=== PATIENT | male | born 1985 | race Caucasian/White ===

== ENCOUNTER 2016-11-28 15:32 | Inpatient (IN) | payer BC, OTHER ==
[~2016-11-28] VITALS: Ht 188 cm; Wt 67.4 kg
[~2016-11-28 15:32] MED LIST: HYDR25CA PO; LORA-741 PO; MULT-506 PO
[2016-11-28 16:35] LABS: BASO % 0.3 %; BASO ABS # 0.02 K/uL (0-0.2); COMPLETE YES; MEAN CELL VOLUME 90.5 fL (80-100); MEAN CORPUSCULAR HEMOGLOBIN 32.6 pg (25-34); MEAN PLATELET VOLUME 10.7 fL (7.4-10.4); MONO % 7.5 %; NEUT % 42.2 %; PLATELET COUNT 223 K/uL (130-400); RED BLOOD COUNT 4.75 M/uL (4.7-6.1); WHITE BLOOD COUNT 6.94 K/uL (4.8-10.8)
[2016-11-28 16:44] LABS: URINE APPEARANCE CLEAR (CLEAR); URINE COLOR DK YELLOW; URINE NITRITE NEG (NEG); URINE PH 5.5 (4.5-7.5); URINE SPECIFIC GRAVITY 1.037 (1.000-1.030); UROBILINOGEN NEG (NEG)
[2016-11-28 16:53] LABS: BUN/CREATININE RATIO 21.8 (10-20); CALCIUM 9.4 mg/dl (8.5-10.1); CREATININE 0.85 mg/dl (0.60-1.40); POTASSIUM 3.7 mmol/L (3.5-5.1)
[2016-11-28 17:02] LABS: MANUAL MICROSCOPIC REQUIRED? NO; REVIEW REQ? NO
[2016-11-28 17:03] LABS: URINE BILIRUBIN NEG (NEG)
[2016-11-28 17:04] LABS: BENZODIAZEPINE, URINE NEG (NEG); COCAINE,URINE NEG (NEG); PHENCYCLIDINE, URINE NEG (NEG)
[2016-11-28 17:04] LABS: ALB/GLOB RATIO 1.7 (0.9-2); THYROID STIMULATING HORMONE 2.01 uIu/ml (0.300-4.500)
--- NOTE | 2016-11-28 19:12 | EMERGENCY ROOM VISIT NOTE ---
History Report prepared by [place]: Merle Marie Under the Supervision of: Dr. Jian Duque D.O. First contact with patient: 15:54 Chief Complaint: MENTAL HEALTH EVALUATION Stated Complaint: DEPRESSION AND ANXIETY, PANIC History of Present Illness The patient is a 31 year old male who presents to the Emergency Room with complaints of persistent depression starting a few days ago. The patient complains of suicidal thoughts with plans to shoot himself. He also has intermittent homicidal ideation about hurting his girlfriend and his kids. He feels confused about his thoughts. He reports a loss of appetite. The patient has a history of similar symptoms occurring in May 2016. He has a history of ADHD and anxiety. He currently denies any pain. Pt denies headache, change in vision, fevers, chest pain, shortness of breath, nausea, vomiting, diarrhea, pain with urination, and melena. Source of History: patient Onset: a few days ago Position: other (global) Symptom Intensity: No pain Quality: other (depression) Timing: other (persistent) Associated Symptoms: No SOB, No abdominal pain, No chest pain, No diarrhea, No fevers, No headache, No nausea, No vomiting Review of Systems See HPI for pertinent positives & negatives. A total of 10 systems reviewed and were otherwise negative. Past Medical & Surgical Medical Problems: (1) Anxiety (2) Depression (3) Panic attack Family History Patient reports no known family medical history. Social History Smoking Status: Never Smoker Marital Status: single Occupation Status: employed Current/Historical Medications No Active Prescriptions or Reported Meds Allergies Coded Allergies: NSAIDs (Verified Adverse Reaction, Intermediate, GI BLEED, 11/28/16) Physical Exam Vital Signs Date Time Temp Pulse Resp B/P Pulse Ox O2 Delivery O2 Flow Rate FiO2 11/28/16 21:26 70 16 116/64 100 11/28/16 20:00 74 12 109/54 11/28/16 17:45 79 17 111/63 97 Room Air 11/28/16 15:49 37.0 90 21 126/76 98 Room Air Physical Exam GENERAL: Sitting up in bed, alert, well appearing, well nourished, no distress, non-toxic. EYE EXAM: normal conjunctiva OROPHARYNX: no exudate, no erythema, lips, buccal mucosa, and tongue normal and mucous membranes are moist NECK: supple, no nuchal rigidity, no adenopathy, non-tender LUNGS: Clear to auscultation. Normal chest wall mechanics HEART: no murmurs, S1 normal and S2 normal ABDOMEN: abdomen soft, non-tender, normo-active bowel sounds, no masses, no rebound or guarding. BACK: Back is symmetrical on inspection and there is no deformity, no midline tenderness, no CVA tenderness. SKIN: no rashes and no bruising UPPER EXTREMITIES: upper extremities are grossly normal. LOWER EXTREMITIES: No pitting edema. NEURO EXAM: Normal sensorium, cranial nerves II-XII grossly intact, normal speech, no gross weakness of arms, no gross weakness of legs. PSYCHIATRIC: Admits to suicidal ideation with a plan to shoot himself and intermittent homicidal ideation. Medical Decision & Procedures Laboratory Results 11/28/16 16:17 Red Blood Count 4.75, Mean Corpuscular Volume 90.5, Mean Corpuscular Hemoglobin 32.6, Mean Corpuscular Hemoglobin Concent 36.0, Mean Platelet Volume 10.7, Neutrophils (%) (Auto) 42.2, Lymphocytes (%) (Auto) 49.0, Monocytes (%) (Auto) 7.5, Eosinophils (%) (Auto) 1.0, Basophils (%) (Auto) 0.3, Neutrophils # (Auto) 2.93, Lymphocytes # (Auto) 3.40, Monocytes # (Auto) 0.52, Eosinophils # (Auto) 0.07, Basophils # (Auto) 0.02 11/28/16 16:17 Test 11/28/16 16:14 11/28/16 16:17 Urine Color DK YELLOW Urine Appearance CLEAR (CLEAR) Urine pH 5.5 (4.5-7.5) Urine Specific [place] 1.037 (1.000-1.030) Urine Protein 1+ (NEG) Urine Glucose (UA) NEG (NEG) Urine Ketones 3+ (NEG) Urine Occult Blood NEG (NEG) Urine Nitrite NEG (NEG) Urine Bilirubin NEG (NEG) Urine Urobilinogen NEG (NEG) Urine Leukocyte Esterase NEG (NEG) Urine WBC (Auto) 1-5 /hpf (0-5) Urine RBC (Auto) 0-4 /hpf (0-4) Urine Hyaline Casts (Auto) 5-10 /lpf (0-5) Urine Epithelial Cells (Auto) 10-20 /lpf (0-5) Urine Bacteria (Auto) NEG (NEG) Urine Opiates Screen NEG (NEG) Urine Methadone, Qualitative NEG (NEG) Urine Barbiturates NEG (NEG) Urine Phencyclidine (PCP) Level NEG (NEG) Ur Amphetamine/Methamphetamine NEG (NEG) MDMA (Ecstasy) Screen NEG (NEG) Urine Benzodiazepines Screen NEG (NEG) Urine Cocaine Metabolite NEG (NEG) Urine Marijuana (THC) NEG (NEG) White Blood Count 6.94 K/uL (4.8-10.8) Red Blood Count 4.75 M/uL (4.7-6.1) Hemoglobin 15.5 g/dL (14.0-18.0) Hematocrit 43.0 % (42-52) Mean Corpuscular Volume 90.5 fL (80-100) Mean Corpuscular Hemoglobin 32.6 pg (25-34) Mean Corpuscular Hemoglobin Concent 36.0 g/dl (32-36) Platelet Count 223 K/uL (130-400) Mean Platelet Volume 10.7 fL (7.4-10.4) Neutrophils (%) (Auto) 42.2 % Lymphocytes (%) (Auto) 49.0 % Monocytes (%) (Auto) 7.5 % Eosinophils (%) (Auto) 1.0 % Basophils (%) (Auto) 0.3 % Neutrophils # (Auto) 2.93 K/uL (1.4-6.5) Lymphocytes # (Auto) 3.40 K/uL (1.2-3.4) Monocytes # (Auto) 0.52 K/uL (0.11-0.59) Eosinophils # (Auto) 0.07 K/uL (0-0.5) Basophils # (Auto) 0.02 K/uL (0-0.2) RDW Standard Deviation 40.1 fL (36.4-46.3) RDW Coefficient of Variation 12.1 % (11.5-14.5) Immature Granulocyte % (Auto) 0.0 % Immature Granulocyte # (Auto) 0.00 K/uL (0.00-0.02) Anion Gap 9.0 mmol/L (3-11) Est Creatinine Clear Calc Drug Dose 125.0 ml/min Estimated GFR () 136.5 Estimated GFR (Non- 117.7 BUN/Creatinine Ratio 21.8 (10-20) Calcium Level 9.4 mg/dl (8.5-10.1) Total Bilirubin 1.0 mg/dl (0.2-1) Direct Bilirubin 0.2 mg/dl (0-0.2) Aspartate Amino Transf (AST/SGOT) 10 U/L (15-37) Alanine Aminotransferase (ALT/SGPT) 19 U/L (12-78) Alkaline Phosphatase 60 U/L (45-117) Total Protein 8.5 gm/dl (6.4-8.2) Albumin 5.3 gm/dl (3.4-5.0) Globulin 3.2 gm/dl (2.5-4.0) Albumin/Globulin Ratio 1.7 (0.9-2) Thyroid Stimulating Hormone (TSH) 2.010 uIu/ml (0.300-4.500) Ethyl Alcohol mg/dL < 3.0 mg/dl (0-3) Laboratory results per my review. ED Course ED COURSE: Vital signs were reviewed and showed normal. The patients medical record was reviewed The above diagnostic studies were performed and reviewed. ED treatments and interventions as stated above. 1554: The patient was evaluated in room A07. A complete history and physical examination was performed. 1908: Upon reevaluation, the patient is resting comfortably. I discussed my findings with the patient and he understands and agrees with the treatment plan. Based on the patients age, coexisting illnesses, exam and lab findings the decision to treat as an inpatient was made. The patient remained stable while under my care. The patient will be evaluated for further management at [address] [place] [address]. Medical Decision Differential diagnosis: Etiologies such as mood disorder, infection, hypoglycemia, electrolyte abnormalities, cardiac sources, intracerebral event, toxicologic, neurologic, as well as others were entertained. Patient is a 31-year-old male who presents the ER with suicidal and homicidal ideations. He has a history of ADHD and anxiety. CBC along with BMP, LFTs, bilirubin and TSH are unremarkable. UA is unremarkable. Urine tox was negative. Alcohol was negative. Patient was evaluated and admitted to [facility] with suicidal and homicidal ideations. CBC along with BMP, bilirubin, LFTs and TSH are unremarkable. Urine tox is unremarkable. Patient was admitted to [facility]. Impression Primary Impression: Mood disorder Additional Impressions: Suicidal ideation Homicidal ideation Scribe Attestation The scribe's documentation has been prepared under my direction and personally reviewed by me in its entirety. I confirm that the note above accurately reflects all work, treatment, procedures, and medical decision making performed by me. Departure Information Dispostion Mental Health Acute Care Prescriptions No Active Prescriptions or Reported Meds Referrals Octaviano Farfan M.D. (PCP) Forms HOME CARE DOCUMENTATION FORM, IMPORTANT VISIT INFORMATION Patient Instructions [facility] Problem Qualifiers
[2016-11-28] MEDS ORDERED: NURSING VERBAL MED ORDER ONE (21:15)
[2016-11-28 21:26] VITALS: O2SAT 100
[2016-11-28] MEDS ORDERED: hydrOXYzine HCL 25 MG TAB PO PRN (21:45)
[2016-11-28] MEDS ORDERED: CLONAZEPAM 0.5 MG TAB PO ONE (21:45)
[2016-11-28] MEDS ORDERED: MAGNESIUM HYDROXIDE SUSP 30 ML UDC PO PRN (21:45)
[2016-11-28] MEDS ORDERED: ALUMINUM/MAGNESIUM SUSP 30 ML UDC PO PRN (21:45)
[2016-11-28] MEDS ORDERED: SODIUM CHLORIDE 0.65% NA SOLN 45 ML (OCEAN) PRN (21:45)
[2016-11-28] MEDS ORDERED: ACETAMINOPHEN 325 MG TAB PO PRN (21:45)
[2016-11-28] MEDS ORDERED: BISMUTH SUBSALICYLATE PER ML OMNICELL CHARGE PO PRN (21:45)
[2016-11-28 22:53] VITALS: BP 120/80; PULSE 63; TEMP 36.4; Ht 188 cm; Wt 67.4 kg
[2016-11-29 06:50] VITALS: BP_SYST 112; BP_SYST 129; BP_DIAS 63; BP_DIAS 84; PULSE 106; PULSE 77; TEMP 36.8
[2016-11-29] MEDS ORDERED: FLUOXETINE HCL 20 MG CAP PO ONE (12:20)
--- NOTE | 2016-11-29 14:49 | HISTORY & PHYSICAL EXAMINATION ---
DATE OF ADMISSION: 11/28/2016 DATE OF EVALUATION: 11/29/2016. IDENTIFYING INFORMATION: Andrea Chaves is a 31-year-old male from [place], who lives with his girlfriend, girlfriend's 5-year-old daughter and their new 2-month-old daughter. He has a history of depression, anxiety, and ADHD, treated by his PCP, Dr. Farfan. He presented to the Emergency Room due to worsening mood and anxiety with suicidal thoughts to shoot himself and homicidal thoughts towards family members. He was admitted voluntarily. CHIEF COMPLAINT: "Not good, bawling a lot." HISTORY OF PRESENT ILLNESS: The patient states he has had worsening mood and anxiety for at least the past year. His mood has acutely worsened in the past month or two after the of his first child as he has had numerous psychosocial stressors including had to switch job so that he or his girlfriend would be home at all times to care for the baby, relationship problems with his girlfriend who is suffering from depression, lack of medical insurance and access to care and poor sleep in the context of having a . He decided to come to the Emergency Room as he did not feel safe and did not trust himself, stating he has been having intrusive thoughts about harming his infant daughter or his girlfriend, which he does not want to act on, but worries that he would lose control and then has thoughts of ending his own life by shooting himself. He gave examples of thoughts that come late at night when the baby is crying and he is feeling angry and frustrated and then has thoughts of shaking the baby, which he knows can be fatal or of "just smashing her up against something to make her quit." He states that when he had these thoughts, he instead laid his daughter down and did deep breathing. He denies that he has ever harmed the baby in any way, but is very concerned about these thoughts and scarred of them, stating that he wants to be sure he would never do something to hurt one of his family members. He does not even like to watch violence on TV because it makes him think about these thoughts and worries that he would hurt somebody. He describes his thoughts as intrusive and obsessive and they have led to worsening mood and anxiety. He says he "obsesses about my condition, think about if I had ever hurt anyone, think I kill myself if I thought I was actually going to do it." He admits to suicidal thoughts with a plan to shoot himself, noting that they have guns in the home, although they are currently locked in a safe, which belongs to his brother in which he does not have access to. His depression has been ongoing for over a year. He was seen in the Emergency Room in April and advised to follow up with outpatient providers for depression. He began counseling with Merlene Mejia, whom he saw 2-3 times over the summer. He says she diagnosed him with ADHD and that his PCP then prescribed several different medications for him. He does think his mood got better briefly over the summer, but does not think his depression ever fully went into remission as he never felt he was back to his normal self. He had worsening anxiety with the stimulants he was tried on and has tried several different antidepressants, only 1 of which was helpful. He states that he was not very supportive of his girlfriend during the because he did not want a child and he now feels bad about it as he says he cannot imagine not being a father and is apologized to his girlfriend. He states that he and his girlfriend have poor communication and a strained relationship, although he is hopeful that they can continue to work on their issues. He feels bad because of his girlfriend's depression, stating she "changed after she had the baby, is not happy. She does not seem happy like you should be when you have a baby. 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 He endorses decreased appetite and has lost several pounds. For the past 3 days prior to admission, he did not eat at all and only had very minimal water. He endorses hopelessness, stating he wants things to get better, but fears that they will not. He reports poor concentration, low energy, daily crying spells and impaired sleep. Part of his sleep impairment is due to the baby waking up. He endorses irritability and decreased ability to get pleasure out of things. He states that he "woke up this morning and felt like I wanted to . I feel like I am not supposed to be here." He has had thoughts of both shooting himself and jumping off of a building. He states he would not want to act on these because he knows his family needs him, but at times feels that nothing will help him to feel better. He also endorses high anxiety, which she rates at 10/10 and says it is constant every day all day. His thoughts raced and he describes obsessive anxious thoughts about what will happen to him and is still get better. He feels keyed up on an edge and said he is "always waiting for something bad happened." He does report a history of panic attacks, the first one occurred 8-10 years ago, he thought he was having a heart attack and was seen at his local Emergency Room. He estimates he has them 1-2 times a year. His last one was in the spring of 2015 and he went to the [facility] emergency room, where he was given an Ativan. He denies symptoms of supa now or in the past. He denies ever having hallucinations or delusions. He does state that once or twice, he thought he saw a ghost, but denies other forms of visual hallucinations. He endorses paranoia, which he describes as "always thinking people want to take me for something, but are not sincere." He admits to difficulty trusting people, but denies lolly paranoia or paranoia delusional proportions. His thoughts feel scattered due to anxiety, but he denies more significant thought disorganization. He has not been on any medications for about the past 2 months and prior to that was taking a stimulants and Trintellix is prescribed by his PCP, but then stopped the Trintellix because "they told me I should not take both that and a stimulant at the same time." ALLERGIES: NSAIDS. HOME MEDICATIONS: None. PAST PSYCHIATRIC HISTORY: The patient has never seen a psychiatrist or been admitted to a behavioral health unit. He denies a history of suicide attempts, although he does have a history of overdosing on Ativan about 10 years ago in the context of high anxiety. He denies that he was trying to harm himself, but instead was trying to sleep. He did seek medical attention, but was not admitted. He has been seen at [facility] in spring 2015 and in our ER in April 2016 for anxiety and depression and each time was released to home. He had a very brief course of therapy with Merlene Mariscal 2-3 sessions this past summer, but no other mental health treatment. Medications are prescribed by his PCP. He believes he has been diagnosed with depression, anxiety, and ADHD. He denies a history of violence towards others, but does have a remote history of smashing things and punching holes in falls between ages 19 and 22. There are guns in the home, but they are locked in a safe. Previous medication trials include, but are not limited to sertraline, which he took at a very low dose of 25 mg for about 2 days and then stopped as he did not think it was working. Lexapro, which she took for about 5 months at a dose of 15 or 20 mg and says it was "terrible" as he felt it made his symptoms worse. Trintellix helped and he was on it for about a month before it was stopped due to concerns about it is interacting with stimulants. Focalin caused him to be very jittery. Ativan, he overdosed on it about 10 years ago. PAST MEDICAL HISTORY: PCP is Dr. Octaviano Farfan in [place]. 1. No chronic medical issues. 2. Underweight with a BMI of 19 and weight of 148 pounds. 3. Denies a history of head injury, seizures, obesity, diabetes, hypertension, hyperlipidemia or heart disease. SUBSTANCE ABUSE HISTORY: The patient is a former smoker, but quit 2 years ago. He drinks large amounts of coffee about 432 ounce cups throughout the day. He has a history of heavy drinking in the past, stating that he drinks on a daily basis up to a 6 pack. Multiple people expressed concerns about his drinking and told him to cut down. He admits to blackouts, driving drunk and missing obligations due to his drinking. He denies any history of legal consequences, withdrawal or substance abuse treatment. He has cut back over on his drinking over the past year and has not had any alcohol for about the past 2 months since his daughter was born. He scored a 6 on the audit. He admits to using marijuana in the remote past, but denies any substance or other drug use in the past year including use of illicit drugs, prescription medications, [id number] medications, inhalants, organics or synthetics. FAMILY HISTORY: Maternal grandmother, maternal great grandmother and maternal aunt with anxiety and depression. Paternal grandmother with anxiety and depression. Father with drug and alcohol abuse. Maternal grandfather with alcohol abuse. No family history of suicides. Medically, mother has hypertension. Maternal grandparents have diabetes and obesity and great grandmother has hyperlipidemia. He does not know of a family history of heart disease. SOCIAL HISTORY: The patient is from the [facility]. He was raised by both parents until they about 17 years ago. He has 2 younger siblings, a brother and a sister, whom he has a good relationship with. He says his father was not around much even when his parents were still together and was often out, using drugs and alcohol. He currently lives in [place] with his girlfriend, their new 2-month-old daughter and his girlfriend's 5-year-old daughter from a previous relationship, who is with them most of the time. He has been with his girlfriend for over 2 years. He graduated high school. He was previously working at [employer] for about 4 years, but 1 month ago, quit that job and switched to [employer] in order to have a schedule where he and his girlfriend would not both be gone on at the same time as she also worked at the factory. He likes his job, but not his hours as he works 50+ hours a week. He has never been . He endorses jain beliefs, says he believes in God and as a Amish. He denies legal problems and denies a history of abuse. He does report some psychological trauma due to "having a deadbeat dad." STRENGTHS: Employed and motivated to get well. REVIEW OF SYSTEMS: Ten systems reviewed and are negative except as stated above. LABORATORY DATA: CBC normal. Metabolic panel shows elevated BUN of 19, low AST of 10, elevated total protein 8.5 and elevated albumin 5.3. TSH normal at 2.010. Urinalysis showed elevated specific gravity at 1.037, 3+ ketones, 5-10 hyaline casts, and 10-20 epithelial cells. Drug screen negative. VITAL SIGNS: Temperature 36.8, pulse 77, respiratory rate 16, blood pressure 112/63, and pulse ox 100% on room air. PHYSICAL EXAMINATION: Physical exam performed in the Emergency Room was reviewed and accepted for the purposes of this admission. MENTAL STATUS EXAMINATION: This is a tall, thin white male, appearing his stated age. He has good hygiene and grooming. He is dressed in jeans and a dorene shirt, seated in no acute distress. No abnormal movements. Gait and station are normal. Eye contact is limited, looking down at the floor for much of the interview. Speech is spontaneous, normal rate, volume, and tone. Mood is depressed and affect is restricted to depressed and is mood congruent. Thoughts are goal directed. He endorses suicidal thoughts with plans to shoot himself or jump off a terry. He endorses homicidal thoughts with thoughts to harm his infant daughter or girlfriend. He denies intent to act on these here. He denies psychosis. He is alert and fully oriented. Memory, attention and language are grossly intact per interview. Level of intelligence estimated to be average. Insight and judgment are fair. RISK ASSESSMENT: Risk factors include white male, previous psychiatric diagnosis, substance use, impaired sleep, limited supports, barriers access to care with no outpatient mental health providers, depression, anxiety, suicidal thoughts, homicidal thoughts, and access to guns. Protective factors include willing to get help, has been able to cut back on alcohol use, and guns are locked. No history of suicide attempts or violence towards others. Responsible for a young child and is employed. FORMULATION: Andrea Chaves is a 31-year-old white male who lives with his girlfriend, their 2-month-old daughter and the girlfriend's 5-month-old daughter in [place], [place], has a history of depression, anxiety, and ADHD, treated by his PCP as well as alcoholism and presented to the Emergency Room with worsening mood and anxiety with thoughts to harm both himself and his family. He requires inpatient admission due to the risk of harm to both himself or others at this time. DIAGNOSES: 1. Major depressive disorder, recurrent, severe without psychosis. 2. Generalized anxiety disorder. 3. Anxiety, not otherwise specified with symptoms of both panic disorder and obsessive compulsive disorder. 4. Alcohol use disorder. 5. Caffeine use disorder. 6. Underweight. TREATMENT PLAN: 1. Depression: Get records from patient's PCP to clarify past medication trials. We discussed the possibility of retrialing sertraline, as he only took it for 2 days, but he would prefer to take a medication that would be affordable without insurance, so discussed a trial of fluoxetine, which he agreed to. Start 20 mg daily and titrate upwards as tolerated. He may need a higher dose due to the severity of his anxiety symptoms. 2. OCD: with primarily obsessive thoughts about hurting himself and others. He would benefit from an SSRI medication as well as working on behavioral techniques to manage anxiety and healthy ways to cope. Would also have hydroxyzine ordered as needed. Would avoid controlled substances given his substance abuse history. Also discussed the importance of avoiding stimulants, which have exacerbated his anxiety in the past and limiting his caffeine use. 3. Suicidal and homicidal thoughts: Work on healthy coping skills and a discharge safety plan. We will schedule family meeting with girlfriend, who should also be aware of the safety plan and what to do if the patient is feeling unsafe and ensure that he will not have access to guns. He will need to follow up with a therapist and psychiatrist, but insurance and his clinical neuropsychologist are both barriers with his lack of insurance and busy schedule. 4. Coordinate care with PCP, Dr. Octaviano Farfan. 5. Underweight: Monitor p.o. intake and consider loss prevention auditor consult. 6. Alcohol use disorder: The patient has already cut back on his use and would benefit from continued education about the risks of alcohol use and the recommendations for abstinence, especially given his mood and anxiety disorders and strong family history of alcoholism. Avoid prescription of controlled substances due to risk of misuse or abuse and history of overdose. [id number]. MTDD
[2016-11-29] MEDS: hydrOXYzine HCL 25 MG TAB PO PRN (22:16)
[2016-11-30 06:51] VITALS: BP_SYST 108; BP_SYST 123; BP_DIAS 68; BP_DIAS 71; PULSE 75; PULSE 93; TEMP 36.6
[2016-11-30] MEDS: FLUOXETINE HCL 20 MG CAP PO SCH (08:55)
--- NOTE | 2016-11-30 13:45 | Psychiatric Progress Notes ---
Progress Note Date of Service Nov 30, 2016. Interval History 31 yo male admitted voluntarily with thoughts of suicide and intrusive thoughts of hurting baby and girlfriend. Chief Complaint "Sad.". Subjective Patient was seen & assessed interval progress reviewed with Treatment Team. The patient remains distressed by his thoughts. He tearfully says that he thinks he is a bad person because he has had the thoughts to hurt his baby, and worries that he might act on them. He works hard to suppress them, butf they are persistent. He says that he spends a lot of time looking out of our window, thinking that if he can't control the thoughts he would rather kill himself. He feels "hopeless". had a family meeting with his GF this AM. He says that she is overwhelmed with everything. 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 he feels "confused", not knowing how to help himself. Review of Systems Constitutional: + fatigue ENT: No dental problems, No hearing loss, No nasal symptoms, No problem reported, No sore throat, No tinnitus, No trouble swallowing, No unusual epistaxis Respiratory: No cough, No dyspnea at rest, No dyspnea on exertion, No hemoptysis, No problem reported, No shortness of breath, No sputum, No wheezing Cardiovascular: No PND, No chest pain, No claudication, No edema, No orthopnea , No palpitations, No problem reported Abdomen: No GI bleeding, No constipation, No diarrhea, No nausea, No pain, No problem reported, No vomiting Musculoskeletal: No calf pain, No joint pain, No muscle pain, No problem reported, No swelling Neurologic: No balance problems, No memory loss, No numbness/tingling, No paralysis, No problem reported, No vertigo, No weakness Psychiatric: + anxiety, + depression symptoms (with SI, hopelessness, decreased appetite), + insomnia Sleep Information Total Hours of Sleep: 6.50 Meal Information Percent of Breakfast Consumed: 25 Percent of Lunch Consumed: 100 Percent of Dinner Consumed: 90 Mental Status Exam During interview pt is: alert and oriented, cooperative Appearance: appropriately dressed, appropriately groomed Eye contact is: poor Motor behavior is: steady gait & station, no abnormal motor movements Speech: normal in rate, rhythm & volume Affect: depressed, tearful Mood is: depressed, anxious Thought process: perseveration (re: intrusive thoughts) Thought content: obsessions (thoughts to hurt family) Suicidal thought are: present, Plan: present (to jump) Hallucinations: denies auditory, denies visual Cognition: memory grossly intact, attention grossly intact Intelligence estimated to be: average Insight: impaired Judgement: impaired Impression Adjusting to the unit, but remains severely depressed with SI and HI toward family. Thoughts are obsessional in nature, and meet criteria for OCD. His distress is palpable. Started on Prozac 20 mg yesterday and is tolerating, but suicide remains a risk at this time. Family meeting this AM. Will continue current plan Continued Inpatient Care Requires inpatient care due to the severity of his condition and the risk for suicide if discharged. Plan (1) Major depressive disorder, single episode, severe without psychosis 2/3 -Continue Prozac 20 mg. daily - Family meeting held with girlfriend today - Q 15 mn checks for safety - Encourage participation in group and individual counseling - The patient will require psychiatric aftercare - Assist the patient to learn and utilize healthy coping strategies (2) OCD (obsessive compulsive disorder) 2/3 - Meds as above - Encourage distracting activities - Educate about the nature of OCD, that not likely to act - Explore mindfulness techniques, relaxation, breathing exercises (3) Alcohol use disorder 2/3 - Encourage abstinence (4) Underweight 2/3 - Monitor weight - Consider dietary consult Discharge / Aftercare Planning Primary Care Physician: Name: Dr Farfan Therapist: Name: was with Kendra Rodney Freelance Art Director: Name: richard Visit Code E&M Code: 31328 Inventory Assets Strengths: Love of family, willingness to engage in treatment Needs: To abstain from substances Risk Factors Assessment Male: Yes /single/: Yes Higher / Fall in social status: No Health problems: No Substance use disorders: Yes Protective Factors Assessment : No Responsible for young children: Yes Employed: Yes Stable relationships: No Supportive family: Yes Data Vital Signs Last 24 Hrs: Date Time Temp Pulse Resp B/P Pulse Ox O2 Delivery O2 Flow Rate FiO2 11/30/16 06:51 36.6 75 14 108/68 93 123/71 Meds Administered Last 24 Hrs: Meds Administered (Past 24Hrs) Medications (Trade) Dose Ordered Sig/Shaggy Route Start Time Stop Time Status Last Admin Dose Admin Hydroxyzine HCl (Vistaril Tab) 50 mg HSZ PRN PO 11/28/16 21:45 12/28/16 21:44 11/29/16 22:16 50 MG Clonazepam (Klonopin Tab) 0.5 mg NOW ONCE PO 11/28/16 21:45 11/28/16 21:46 DC 11/28/16 23:37 0.5 MG Fluoxetine HCl (Prozac Cap) 20 mg QAM PO 11/30/16 09:00 12/30/16 08:59 11/30/16 08:55 20 MG Fluoxetine HCl (Prozac Cap) 20 mg 1220 ONCE PO 11/29/16 12:20 11/29/16 12:28 DC 11/29/16 12:44 20 MG Lab Results Last 24 Hrs: 11/28/16 16:17 Red Blood Count 4.75, Mean Corpuscular Volume 90.5, Mean Corpuscular Hemoglobin 32.6, Mean Corpuscular Hemoglobin Concent 36.0, Mean Platelet Volume 10.7, Neutrophils (%) (Auto) 42.2, Lymphocytes (%) (Auto) 49.0, Monocytes (%) (Auto) 7.5, Eosinophils (%) (Auto) 1.0, Basophils (%) (Auto) 0.3, Neutrophils # (Auto) 2.93, Lymphocytes # (Auto) 3.40, Monocytes # (Auto) 0.52, Eosinophils # (Auto) 0.07, Basophils # (Auto) 0.02 11/28/16 16:17 Test 11/28/16 16:14 11/28/16 16:17 Urine Color DK YELLOW Urine Appearance CLEAR (CLEAR) Urine pH 5.5 (4.5-7.5) Urine Specific [place] 1.037 (1.000-1.030) Urine Protein 1+ (NEG) Urine Glucose (UA) NEG (NEG) Urine Ketones 3+ (NEG) Urine Occult Blood NEG (NEG) Urine Nitrite NEG (NEG) Urine Bilirubin NEG (NEG) Urine Urobilinogen NEG (NEG) Urine Leukocyte Esterase NEG (NEG) Urine WBC (Auto) 1-5 /hpf (0-5) Urine RBC (Auto) 0-4 /hpf (0-4) Urine Hyaline Casts (Auto) 5-10 /lpf (0-5) Urine Epithelial Cells (Auto) 10-20 /lpf (0-5) Urine Bacteria (Auto) NEG (NEG) Urine Opiates Screen NEG (NEG) Urine Methadone, Qualitative NEG (NEG) Urine Barbiturates NEG (NEG) Urine Phencyclidine (PCP) Level NEG (NEG) Ur Amphetamine/Methamphetamine NEG (NEG) MDMA (Ecstasy) Screen NEG (NEG) Urine Benzodiazepines Screen NEG (NEG) Urine Cocaine Metabolite NEG (NEG) Urine Marijuana (THC) NEG (NEG) White Blood Count 6.94 K/uL (4.8-10.8) Red Blood Count 4.75 M/uL (4.7-6.1) Hemoglobin 15.5 g/dL (14.0-18.0) Hematocrit 43.0 % (42-52) Mean Corpuscular Volume 90.5 fL (80-100) Mean Corpuscular Hemoglobin 32.6 pg (25-34) Mean Corpuscular Hemoglobin Concent 36.0 g/dl (32-36) Platelet Count 223 K/uL (130-400) Mean Platelet Volume 10.7 fL (7.4-10.4) Neutrophils (%) (Auto) 42.2 % Lymphocytes (%) (Auto) 49.0 % Monocytes (%) (Auto) 7.5 % Eosinophils (%) (Auto) 1.0 % Basophils (%) (Auto) 0.3 % Neutrophils # (Auto) 2.93 K/uL (1.4-6.5) Lymphocytes # (Auto) 3.40 K/uL (1.2-3.4) Monocytes # (Auto) 0.52 K/uL (0.11-0.59) Eosinophils # (Auto) 0.07 K/uL (0-0.5) Basophils # (Auto) 0.02 K/uL (0-0.2) RDW Standard Deviation 40.1 fL (36.4-46.3) RDW Coefficient of Variation 12.1 % (11.5-14.5) Immature Granulocyte % (Auto) 0.0 % Immature Granulocyte # (Auto) 0.00 K/uL (0.00-0.02) Anion Gap 9.0 mmol/L (3-11) Est Creatinine Clear Calc Drug Dose 125.0 ml/min Estimated GFR () 136.5 Estimated GFR (Non- 117.7 BUN/Creatinine Ratio 21.8 (10-20) Calcium Level 9.4 mg/dl (8.5-10.1) Total Bilirubin 1.0 mg/dl (0.2-1) Direct Bilirubin 0.2 mg/dl (0-0.2) Aspartate Amino Transf (AST/SGOT) 10 U/L (15-37) Alanine Aminotransferase (ALT/SGPT) 19 U/L (12-78) Alkaline Phosphatase 60 U/L (45-117) Total Protein 8.5 gm/dl (6.4-8.2) Albumin 5.3 gm/dl (3.4-5.0) Globulin 3.2 gm/dl (2.5-4.0) Albumin/Globulin Ratio 1.7 (0.9-2) Thyroid Stimulating Hormone (TSH) 2.010 uIu/ml (0.300-4.500) Ethyl Alcohol mg/dL < 3.0 mg/dl (0-3) Problem Qualifiers (1) OCD (obsessive compulsive disorder): Obsessive-compulsive disorder type: unspecified Qualified Codes: F42.9 - Obsessive-compulsive disorder, unspecified
[2016-11-30] MEDS: hydrOXYzine HCL 25 MG TAB PO PRN (22:27)
[2016-12-01 06:58] VITALS: BP_SYST 107; BP_SYST 112; BP_DIAS 64; BP_DIAS 65; PULSE 60; PULSE 94; TEMP 36.8
[2016-12-01] MEDS: FLUOXETINE HCL 20 MG CAP PO SCH (08:55)
--- NOTE | 2016-12-01 11:49 | Psychiatric Progress Notes ---
Progress Note Date of Service Dec 01, 2016. Interval History 31 yo male admitted voluntarily with thoughts of suicide and intrusive thoughts of hurting baby and girlfriend. Chief Complaint "I am not feeling any better". Subjective Patient was seen & assessed interval progress reviewed with nursing. Pt continuing to have SI with plan to "obtain a gun, somehow, and shoot myself or jump off a tall building." His SI is described as secondary to obsessive aggressive thoughts to his child, with it described currently as the potential for such thoughts and what if's if could get to the point, with such aggressive thoughts being ego dystonic for him. He is fine with taking the prozac 20mg and is not noticing any relief as of yet. He is having headaches and thinks its form his emotional tension but his headaches are more present since being on prozac and might be a s/e from starting this med. He endorsed muscle tension and diarrhea that is a baseline issue for him with his emotional tension. He shared about his past experience on buspar and how about 3 weeks into the med trial at bid dosing felt spacey and lightheaded and his doctor stopped the med when he reported how intense the negative experience was for him. He is not up for retrying buspar at this time. He finds vistaril 50mg helps him fall asleep here in the hospital and has not used vistaril for anxiety as of yet. He does not view coffee as anxiety provoking. He shared about interpersonal tensions with hsi girlfriend and how his symptoms and his gf's " depression" are impacting their relationship. He denied h/o hypomanic symptoms or hallucinations. He endorsed tendency to daydream and to have various different obsessive thoughts and how being preoccupied/obsessive impacts his concentration and attention. He described a generalized apprehension/anxiety at baseline as well. Over the past 7-8 years he has reframed from alcohol for a few months a few times and since the of his child has only drank perhaps 1-2 times at a milder the baseline level. he is having limited appetite at times with eating lunch more then breakfast. Review of Systems Constitutional: No chills, No fatigue, No fever, No problem reported, No sweats , No weakness, No weight loss Abdomen: + diarrhea (baseline, tied to anxiety per pt), + problem reported ( stomach tension from anxiety) Neurologic: + problem reported (headache) Psychiatric: + anxiety, + depression symptoms, + insomnia, + substance abuse Sleep Information Total Hours of Sleep: 6.50 Meal Information Percent of Breakfast Consumed: 25 Percent of Lunch Consumed: 85 Percent of Dinner Consumed: 25 Mental Status Exam During interview pt is: alert and oriented, cooperative Appearance: appropriately dressed, appropriately groomed Eye contact is: fair Motor behavior is: steady gait & station, no abnormal motor movements Speech: normal in rate, rhythm & volume Affect: depressed, anxious Mood is: depressed, anxious Thought process: goal directed, linear, logical, clear, coherent, perseveration (re: intrusive thoughts) Thought content: obsessions (thoughts to hurt family) Suicidal thought are: present, Plan: present (to jump) Hallucinations: denies auditory, denies visual Cognition: memory grossly intact, attention grossly intact Intelligence estimated to be: average Insight: impaired Judgement: impaired Impression Adjusting to the unit, but remains severely depressed with SI and HI toward family. Thoughts are obsessional in nature, and meet criteria for OCD. His distress is palpable. Started on Prozac 20 mg yesterday and is tolerating, but suicide remains a risk at this time. Family meeting this AM. Will continue current plan Continued Inpatient Care Requires inpatient care due to the severity of his condition and the risk for suicide if discharged. Plan (1) Major depressive disorder, single episode, severe without psychosis 2/3 -Continue Prozac 20 mg. daily - Family meeting held with girlfriend today - Q 15 mn checks for safety - Encourage participation in group and individual counseling - The patient will require psychiatric aftercare - Assist the patient to learn and utilize healthy coping strategies 2/4 - aim to increase prozac to 30mg as of 2/5 dosage - to alleviate anxiety/depressive and obsessive symptoms -consider retrial of buspar but pt weary given lightheadedness/ spaciness that developed few weeks on it (unclear to medical writer if alcohol use could be a factor) ' -encouraged vistaril 25mg prn usage for anxiety and can explore more full use of this med if is alleviating factor -consider other adjunctive meds (non controlled meds given extensive alcohol usage) -encourage limits to coffee/caffeine usage as outpatient (limits occurring on unit by nature of unit structure) -education of how alcohol interplays in depression/obsessiveness/ anxiety concerns and validation of ceasing drinking -safety concerns addressed (2) OCD (obsessive compulsive disorder) 2/3 - Meds as above - Encourage distracting activities - Educate about the nature of OCD, that not likely to act - Explore mindfulness techniques, relaxation, breathing exercises (3) Alcohol use disorder 2/3 - Encourage abstinence 2/4 as above (4) Underweight 2/3 - Monitor weight - Consider dietary consult Discharge / Aftercare Planning Primary Care Physician: Name: Dr Farfan Therapist: Name: was with Kendra Rodney Ladle Liner: Name: richard Visit Code E&M Code: 01912 Inventory Assets Strengths: Love of family, willingness to engage in treatment Needs: To abstain from substances Risk Factors Assessment Male: Yes /single/: Yes Higher / Fall in social status: No Health problems: No Substance use disorders: Yes Protective Factors Assessment : No Responsible for young children: Yes Employed: Yes Stable relationships: No Supportive family: Yes Data Vital Signs Last 24 Hrs: Date Time Temp Pulse Resp B/P Pulse Ox O2 Delivery O2 Flow Rate FiO2 12/01/16 06:58 36.8 60 16 107/65 94 112/64 Meds Administered Last 24 Hrs: Meds Administered (Past 24Hrs) Medications (Trade) Dose Ordered Sig/Shaggy Route Start Time Stop Time Status Last Admin Dose Admin Fluoxetine HCl (Prozac Cap) 20 mg QAM PO 11/30/16 09:00 12/30/16 08:59 12/01/16 08:55 20 MG Fluoxetine HCl (Prozac Cap) 20 mg 1220 ONCE PO 11/29/16 12:20 11/29/16 12:28 DC 11/29/16 12:44 20 MG Problem Qualifiers (1) OCD (obsessive compulsive disorder): Obsessive-compulsive disorder type: unspecified Qualified Codes: F42.9 - Obsessive-compulsive disorder, unspecified
[2016-12-02 06:44] VITALS: BP_SYST 117; BP_SYST 131; BP_DIAS 70; BP_DIAS 71; PULSE 106; PULSE 85; TEMP 36.6
[2016-12-02] MEDS: FLUOXETINE HCL 10 MG CAP PO SCH (08:35)
[2016-12-02] MEDS: BusPIRone 15 MG TAB PO SCH ×2 (12:10→21:45)
--- NOTE | 2016-12-02 18:23 | Psychiatric Progress Notes ---
Progress Note Date of Service Dec 02, 2016. Interval History 31 yo male admitted voluntarily with thoughts of suicide and intrusive thoughts of hurting baby and girlfriend. Chief Complaint "not doing any better". Subjective Patient was seen & assessed interval progress reviewed with nurses. pt struggling, having SI with same plans, states ego dystonic obsessing about potential of aggressive thoughts towards daughter and girlfriend and how so distressing for him makes him want to kill himself. Scared to be discharged but upset at s elf for being away from his family, trying hard to figure out why this is occurring and to pull out of the process. not change in his severe depressive mood and depressive symptoms. shares how in his head and poor concentration including during groups. very poor appetite and shared eating is limited and occurs by pushing himself to eat. stated impaired sleep with first falling asleep before bedtime meds given then awakened and struggled with sleep off /on after that. pt did not try prn daytime Vistaril over concern might make him tired. prozac raised to 30mg today. denied s/e to this med to date. pt denied tendency to having sleep issues in general (other then having a 2 month old - who just now got dx'd with GERD and adjustments for that appears to be improving her sleep past few nights). Pt denied AH or VH, described internal dialogue of weariness of potential of being aggressive despite knowing this is not rationale. pt was working on wirting down positive things about himself as jingle writer came to him for assessment. Review of Systems Constitutional: + fatigue Cardiovascular: No PND, No chest pain, No claudication, No edema, No orthopnea , No palpitations, No problem reported Abdomen: + problem reported (nervous butterflies ) Musculoskeletal: + problem reported (muslce tension from anxiety denied other) Neurologic: No balance problems, No memory loss, No numbness/tingling, No paralysis, No problem reported, No vertigo, No weakness Psychiatric: + anxiety, + depression symptoms, + insomnia Sleep Information Total Hours of Sleep: 6.50 middle insomnia per pt Meal Information Percent of Breakfast Consumed: 10 Percent of Lunch Consumed: 50 Percent of Dinner Consumed: 50 Mental Status Exam During interview pt is: alert and oriented, cooperative Appearance: appropriately dressed, appropriately groomed Eye contact is: fair Motor behavior is: steady gait & station, no abnormal motor movements Speech: normal in rate, rhythm & volume Affect: depressed, anxious Mood is: depressed, anxious Thought process: goal directed, linear, logical, clear, coherent, perseveration (re: intrusive thoughts) Thought content: preoccupation, obsessions (thoughts to hurt family) Suicidal thought are: present, Plan: present (to jump), Intent: present Hallucinations: denies auditory, denies visual Cognition: memory grossly intact, attention grossly intact Intelligence estimated to be: average Insight: impaired Judgement: impaired Impression Adjusting to the unit, but remains severely depressed with SI and HI toward family. Thoughts are obsessional in nature, and meet criteria for OCD. His distress is palpable. Started on Prozac 20 mg yesterday and is tolerating, but suicide remains a risk at this time. Family meeting this AM. Will continue current plan Continued Inpatient Care Requires inpatient care due to the severity of his condition and the risk for suicide if discharged. Plan (1) Major depressive disorder, single episode, severe without psychosis 2/3 -Continue Prozac 20 mg. daily - Family meeting held with girlfriend today - Q 15 mn checks for safety - Encourage participation in group and individual counseling - The patient will require psychiatric aftercare - Assist the patient to learn and utilize healthy coping strategies 2/4 - aim to increase prozac to 30mg as of 2/5 dosage - to alleviate anxiety/depressive and obsessive symptoms -consider retrial of buspar but pt weary given lightheadedness/ spaciness that developed few weeks on it (unclear to jingle writer if alcohol use could be a factor) ' -encouraged vistaril 25mg prn usage for anxiety and can explore more full use of this med if is alleviating factor -consider other adjunctive meds (non controlled meds given extensive alcohol usage) -encourage limits to coffee/caffeine usage as outpatient (limits occurring on unit by nature of unit structure) -education of how alcohol interplays in depression/obsessiveness/ anxiety concerns and validation of ceasing drinking -safety concerns addressed 2/ -prozac 30mg as of 25 dosage -pt decided to retry buspar at 7.5mg bid dosage, monitoring for s/e including feeling spacey or lightheaded on it, aming for gentle tritaiton since s/e previous occurred couple weeks into dosage and possibly as increased. adjunctive for depression and anxiety -likely to raise prozac to 40mg in near future, (2) OCD (obsessive compulsive disorder) 2/3 - Meds as above - Encourage distracting activities - Educate about the nature of OCD, that not likely to act - Explore mindfulness techniques, relaxation, breathing exercises 2/5 meds as above with addition of buspar and prozac titration (3) Alcohol use disorder 2/3 - Encourage abstinence 2/4 as above (4) Underweight 2/3 - Monitor weight - Consider dietary consult Discharge / Aftercare Planning Primary Care Physician: Name: Dr Farfan Therapist: Name: was with Kendra Rodney Retail Product Demo Specialist: Name: na Visit Code E&M Code: 62858 Inventory Assets Strengths: Love of family, willingness to engage in treatment Needs: To abstain from substances Risk Factors Assessment Male: Yes /single/: Yes Higher / Fall in social status: No Health problems: No Substance use disorders: Yes Protective Factors Assessment : No Responsible for young children: Yes Employed: Yes Stable relationships: No Supportive family: Yes Data Vital Signs Last 24 Hrs: Date Time Temp Pulse Resp B/P Pulse Ox O2 Delivery O2 Flow Rate FiO2 12/02/16 06:44 36.6 85 16 117/71 106 131/70 Meds Administered Last 24 Hrs: Meds Administered (Past 24Hrs) Medications (Trade) Dose Ordered Sig/Shaggy Route Start Time Stop Time Status Last Admin Dose Admin Fluoxetine HCl (Prozac Cap) 30 mg QAM PO 12/02/16 09:00 01/01/17 08:59 12/02/16 08:35 30 MG Buspirone HCl (BusPAR TAB) 7.5 mg BID PO 12/02/16 11:00 01/01/17 10:59 12/02/16 12:10 7.5 MG Problem Qualifiers (1) OCD (obsessive compulsive disorder): Obsessive-compulsive disorder type: unspecified Qualified Codes: F42.9 - Obsessive-compulsive disorder, unspecified
[2016-12-02] MEDS: hydrOXYzine HCL 25 MG TAB PO PRN (22:47)
[2016-12-03 06:33] VITALS: BP_SYST 111; BP_SYST 137; BP_DIAS 68; BP_DIAS 88; PULSE 110; PULSE 69; TEMP 36.7
[2016-12-03] MEDS: FLUOXETINE HCL 10 MG CAP PO SCH (08:56)
[2016-12-03] MEDS: BusPIRone 15 MG TAB PO SCH ×2 (08:56→21:37)
--- NOTE | 2016-12-03 13:36 | Psychiatric Progress Notes ---
Progress Note Date of Service Dec 03, 2016. Interval History 31 yo male admitted voluntarily with thoughts of suicide and intrusive thoughts of hurting baby and girlfriend. Chief Complaint "It's been a shah". Subjective Patient was seen & assessed interval progress reviewed with Treatment Team. Staff report he is going to groups, and working on ways to cope with his intrusive thoughts. He says he continues to struggle with anxiety, is very worried about his intrusive thoughts to harm others, saying he "obsesses" over whether or not he would ever act on them, wanting to believe he would not, but worried that he could lose control and hurt someone. He felt comforted by his mother telling him that he has never hurt anyone and she doesn't think he ever would. His mood is better in that "it's leveled out a little bit, not as anxious , not crying as much," but he still feels overwhelmed and nervous. He talks about wanting to be a good dad, and the ways he has been trying to cope with his thoughts, such as reading and talking in groups. He is worried he won't be able to get a therapist or psychiatrist as he doesn't have insurance. He denies current thoughts of harming himself or others, but talks about his worries that "if I thought I could actually do that (hurt someone), I'd kill myself." He feels hopeless when thinking about this, but at other times is hopeful that he will get better. He has not yet worked on a safety plan, and we reviewed this concept. He questions his diagnosis of ADHD, saying he can focus fine to read a book and denies feeling distracted when he drives or does other tasks that require concentration, and wonders if "it's just anxiety." He denies that he had psychological testing, and says he "just took a survey" and was then diagnosed with ADHD. He also says stimulants made his anxiety worse and he doesn 't want to go back to them. Talked about the need to stabilize his mood and anxiety symptoms first before ADHD can even be diagnosed, and that concentration is likely to improve with treatment of depression and anxiety. Sleep Information Total Hours of Sleep: 6.50 Meal Information Percent of Breakfast Consumed: 75 Percent of Lunch Consumed: 50 Percent of Dinner Consumed: 50 Mental Status Exam During interview pt is: alert and oriented, cooperative Appearance: appropriately dressed, appropriately groomed Eye contact is: good Motor behavior is: steady gait & station, no abnormal motor movements Speech: normal in rate, rhythm & volume Affect: anxious Mood is: other ("it's been a shah") Thought process: goal directed, perseveration (on his intrusive thoughts) Thought content: preoccupation, obsessions (thoughts that he might hurt family) Suicidal thought are: present (only when thinking about thoughts he has had to harm his family, and says he would kill himself before he'd harm them), Plan: present (to jump or shoot self), Intent: present Homicidal thoughts are: denied (but still worries that he could have these thoughts outside the hospital ) Hallucinations: denies auditory, denies visual Cognition: memory grossly intact, attention grossly intact Intelligence estimated to be: average Insight: impaired Judgement: impaired Impression Adjusting to the unit, but remains severely depressed with SI and HI toward family. Thoughts are obsessional in nature, and meet criteria for OCD. His distress is palpable. Started on Prozac 20 mg yesterday and is tolerating, but suicide remains a risk at this time. Family meeting held, and will need another prior to discharge to review safety plan, given that thoughts to harm others were directed at infant and girlfriend. Continued Inpatient Care Requires inpatient care due to the severity of his condition and the risk for suicide if discharged. Plan (1) Major depressive disorder, single episode, severe without psychosis 2/3 -Continue Prozac 20 mg. daily - Family meeting held with girlfriend today - Q 15 mn checks for safety - Encourage participation in group and individual counseling - The patient will require psychiatric aftercare - Assist the patient to learn and utilize healthy coping strategies 2/4 - aim to increase prozac to 30mg as of 2/5 dosage - to alleviate anxiety/depressive and obsessive symptoms -consider retrial of buspar but pt weary given lightheadedness/ spaciness that developed few weeks on it (unclear to play writer if alcohol use could be a factor) ' -encouraged vistaril 25mg prn usage for anxiety and can explore more full use of this med if is alleviating factor -consider other adjunctive meds (non controlled meds given extensive alcohol usage) -encourage limits to coffee/caffeine usage as outpatient (limits occurring on unit by nature of unit structure) -education of how alcohol interplays in depression/obsessiveness/ anxiety concerns and validation of ceasing drinking -safety concerns addressed 2/ -prozac 30mg as of 25 dosage -pt decided to retry buspar at 7.5mg bid dosage, monitoring for s/e including feeling spacey or lightheaded on it, aming for gentle tritaiton since s/e previous occurred couple weeks into dosage and possibly as increased. adjunctive for depression and anxiety -likely to raise prozac to 40mg in near future. 2/ - increase fluoxetine to 40mg qam for tomorrow - attempting to arrange outpatient therapy and psychiatric follow up, limited by lack of insurance and financial constraints - recommend second meeting with girlfriend to review safety concerns prior to discharge, given thoughts to harm her and baby (although these are ego dystonic and patient does not want to act on them, but want to ensure girlfriend is aware of the safety plan and what steps to take if thoughts recur or if she feels unsafe, and that she feels safe with him coming home). (2) OCD (obsessive compulsive disorder) 2/3 - Meds as above - Encourage distracting activities - Educate about the nature of OCD, that not likely to act - Explore mindfulness techniques, relaxation, breathing exercises 2/5 - Start Buspar, and continue Prozac titration (3) Alcohol use disorder 2/3 - Encourage abstinence 2/4 as above (4) Underweight 2/3 - Monitor weight - Consider dietary consult Discharge / Aftercare Planning Primary Care Physician: Name: Dr Farfan Therapist: Name: was with Kendra Rodney [facility] Therapist: Name: richard Visit Code E&M Code: 28451 Inventory Assets Strengths: Love of family, willingness to engage in treatment Needs: To abstain from substances Risk Factors Assessment Male: Yes /single/: Yes Higher / Fall in social status: No Health problems: No Substance use disorders: Yes Protective Factors Assessment : No Responsible for young children: Yes Employed: Yes Stable relationships: No Supportive family: Yes Data Vital Signs Last 24 Hrs: Date Time Temp Pulse Resp B/P Pulse Ox O2 Delivery O2 Flow Rate FiO2 12/03/16 06:33 36.7 69 16 111/68 110 137/88 Meds Administered Last 24 Hrs: Meds Administered (Past 24Hrs) Medications (Trade) Dose Ordered Sig/Shaggy Route Start Time Stop Time Status Last Admin Dose Admin Fluoxetine HCl (Prozac Cap) 30 mg QAM PO 12/02/16 09:00 01/01/17 08:59 12/03/16 08:56 30 MG Buspirone HCl (BusPAR TAB) 7.5 mg BID PO 12/02/16 11:00 01/01/17 10:59 12/03/16 08:56 7.5 MG Problem Qualifiers (1) OCD (obsessive compulsive disorder): Obsessive-compulsive disorder type: unspecified Qualified Codes: F42.9 - Obsessive-compulsive disorder, unspecified
[2016-12-03] MEDS: hydrOXYzine HCL 25 MG TAB PO PRN (22:47)
[2016-12-04 06:40] VITALS: BP_SYST 115; BP_SYST 117; BP_DIAS 65; BP_DIAS 69; PULSE 74; PULSE 83; TEMP 36.8
[2016-12-04] MEDS: FLUOXETINE HCL 20 MG CAP PO SCH (08:55)
[2016-12-04] MEDS: BusPIRone 15 MG TAB PO SCH ×2 (08:55→21:27)
--- NOTE | 2016-12-04 10:32 | Psychiatric Progress Notes ---
Progress Note Date of Service Dec 04, 2016. Interval History 31 yo male admitted voluntarily with thoughts of suicide and intrusive thoughts of hurting baby and girlfriend. Chief Complaint "A lot of anxiety". Subjective Patient was seen & assessed interval progress reviewed with Treatment Team. Staff report he is going to groups, but continues to report obsessive, anxious thoughts, and is worried he is not feeling better. He is doing his own ADLs and was proud of himself for showering and changing his sheets, saying he doesn't normally do that. Today he says he is feeling very anxious, is worried that he won't get better, and about not being at work currently and not contributing financially, and about not helping with the work at home, taking care of the baby and the house, feeling he is "pushing it all off on my girlfriend." He is worried he won't be able to get outpatient services, as he doesn't have insurance, and has to submit some paperwork to complete his medical assistance application, which he has to find when he gets home. He has not spoken to his employer, and is worried he will lose his job. He says he "figured it was taken care of, because my girlfriend was texting them." He was encouraged to contact his employer himself to inform them that he'll likely be discharged later this week and when he could return to work. He is hoping to be able to go home by the weekend, as he misses his daughter. He denies thoughts of harming others here, and says he "knows in my heart I don't want to do those things," (hurting his family), but worries that if the thoughts return, that he wouldn't be able to resist them. He had a nightmare last night where he was standing over his girlfriend and thought he was going to hurt her, and it was very upsetting. He says "I know that's not me, so far from anything I'd ever do," but feels very anxious about these intrusive, unwanted thoughts. Processed concept of OCD and unwanted thoughts. Denies side effects to medications, but appetite and sleep remain suboptimal. He feels anxious throughout the day, and agrees to increase hydroxyzine prn and buspirone. Sleep Information Total Hours of Sleep: 6.25 Meal Information Percent of Breakfast Consumed: 100 Percent of Lunch Consumed: 50 Percent of Dinner Consumed: 75 Mental Status Exam During interview pt is: alert and oriented, cooperative Appearance: appropriately dressed, appropriately groomed Eye contact is: good Motor behavior is: steady gait & station, no abnormal motor movements Speech: normal in rate, rhythm & volume Affect: anxious, constricted Mood is: other ("mood is a little better, but so anxious") Thought process: goal directed, perseveration (on his intrusive thoughts and fears) Thought content: preoccupation, obsessions (thoughts that he might hurt family) Suicidal thought are: present (only when thinking about thoughts he has had to harm his family, and says he would kill himself before he'd harm them), Plan: present (to jump or shoot self), Intent: present Homicidal thoughts are: denied (but still worries that he could have these thoughts outside the hospital ) Hallucinations: denies auditory, denies visual Cognition: memory grossly intact, attention grossly intact Intelligence estimated to be: average Insight: fair Judgement: fair Impression Adjusting to the unit, but remains severely depressed with SI and HI toward family. Thoughts are obsessional in nature, and meet criteria for OCD. Started fluoxetine, buspirone, and hydroxyzine for sleep. Family meeting held, and will need another prior to discharge to review safety plan, given that thoughts to harm others were directed at infant and girlfriend. Continued Inpatient Care Requires inpatient care due to the severity of his condition and the risk for suicide if discharged. Plan (1) Major depressive disorder, single episode, severe without psychosis 2/3 -Continue Prozac 20 mg. daily - Family meeting held with girlfriend today - Q 15 mn checks for safety - Encourage participation in group and individual counseling - The patient will require psychiatric aftercare - Assist the patient to learn and utilize healthy coping strategies 2/4 - aim to increase prozac to 30mg as of 2/5 dosage - to alleviate anxiety/depressive and obsessive symptoms -consider retrial of buspar but pt weary given lightheadedness/ spaciness that developed few weeks on it (unclear to report writer if alcohol use could be a factor) ' -encouraged vistaril 25mg prn usage for anxiety and can explore more full use of this med if is alleviating factor -consider other adjunctive meds (non controlled meds given extensive alcohol usage) -encourage limits to coffee/caffeine usage as outpatient (limits occurring on unit by nature of unit structure) -education of how alcohol interplays in depression/obsessiveness/ anxiety concerns and validation of ceasing drinking -safety concerns addressed 2/ -prozac 30mg as of 25 dosage -pt decided to retry buspar at 7.5mg bid dosage, monitoring for s/e including feeling spacey or lightheaded on it, aming for gentle tritaiton since s/e previous occurred couple weeks into dosage and possibly as increased. adjunctive for depression and anxiety -likely to raise prozac to 40mg in near future. 2 - increase fluoxetine to 40mg qam for tomorrow - attempting to arrange outpatient therapy and psychiatric follow up, limited by lack of insurance and financial constraints - recommend second meeting with girlfriend to review safety concerns prior to discharge, given thoughts to harm her and baby (although these are ego dystonic and patient does not want to act on them, but want to ensure girlfriend is aware of the safety plan and what steps to take if thoughts recur or if she feels unsafe, and that she feels safe with him coming home). 2 - continue current plan (2) OCD (obsessive compulsive disorder) 2/3 - Meds as above - Encourage distracting activities - Educate about the nature of OCD, that not likely to act - Explore mindfulness techniques, relaxation, breathing exercises 2 - Start Buspar, and continue fluoxetine titration 2/ - Increase fluoxetine as above 27 - Increase buspirone to 15mg bid to target anxiety. - Increase hydroxyzine to 100mg qhs prn for ongoing insomnia. (3) Alcohol use disorder 2/3 - Encourage abstinence 2/7 - Processed use of alcohol, which he thinks was his only coping mechanism in the past, and that increased anxiety is expected in the months after stopping alcohol. Reviewed developing alternate coping skills. He enjoys gardening and preserving food, which is also financially helpful for the family, and is looking forward to doing that this spring. Also enjoys fishing but hasn't been going recently, discussed plan to go with grandfather this spring, and to schedule time to see grandparents more, do family game night. (4) Underweight 2/3 - Monitor weight - Consider dietary consult 7 - Eating some of each meal here, appetite limited by anxiety Discharge / Aftercare Planning Primary Care Physician: Name: Dr Farfan Therapist: Name: was with Kendra Rodney [employer] Engagement Planning Operator: Name: richard Visit Code E&M Code: 62269 Inventory Assets Strengths: Love of family, willingness to engage in treatment Needs: To abstain from substances Risk Factors Assessment Male: Yes : Yes /single/: Yes Higher / Fall in social status: No Access to guns: Yes (but locked in a safe) Health problems: No Mental Health Diagnoses: Yes Substance use disorders: Yes Previous attempt: No Family history of suicide: No Previous psychiatric stay: No Hopelessness: No Smoker: No Protective Factors Assessment : No Responsible for young children: Yes Employed: Yes Stable relationships: Yes Supportive family: Yes Good rapport with provider: No Data Vital Signs Last 24 Hrs: Date Time Temp Pulse Resp B/P Pulse Ox O2 Delivery O2 Flow Rate FiO2 12/04/16 06:40 36.8 74 17 117/65 83 115/69 Meds Administered Last 24 Hrs: Meds Administered (Past 24Hrs) Medications (Trade) Dose Ordered Sig/Shaggy Route Start Time Stop Time Status Last Admin Dose Admin Buspirone HCl (BusPAR TAB) 7.5 mg BID PO 12/02/16 11:00 01/01/17 10:59 12/04/16 08:55 7.5 MG Fluoxetine HCl (Prozac Cap) 40 mg QAM PO 12/04/16 09:00 01/03/17 08:59 12/04/16 08:55 40 MG Problem Qualifiers (1) OCD (obsessive compulsive disorder): Obsessive-compulsive disorder type: unspecified Qualified Codes: F42.9 - Obsessive-compulsive disorder, unspecified
[2016-12-04] MEDS: hydrOXYzine HCL 25 MG TAB PO PRN (21:28)
[2016-12-05 06:56] VITALS: PULSE 63; TEMP 36.5
[2016-12-05 06:57] VITALS: BP_SYST 129; BP_SYST 136; BP_DIAS 84; BP_DIAS 86; PULSE 61; PULSE 78; TEMP 36.5
[2016-12-05] MEDS: FLUOXETINE HCL 20 MG CAP PO SCH (08:47)
[2016-12-05] MEDS: BusPIRone 15 MG TAB PO SCH ×2 (08:47→21:26)
--- NOTE | 2016-12-05 14:03 | Psychiatric Progress Notes ---
Progress Note Date of Service Dec 05, 2016. Interval History 31 yo male admitted voluntarily with thoughts of suicide and intrusive thoughts of hurting baby and girlfriend. Chief Complaint "Anxious". Subjective Patient was seen & assessed interval progress reviewed with the treatment team. Staff report he is going to groups and participating. He had a second meeting with his girlfriend this morning to review discharge planning and safety at home. He says he is no longer having intrusive thoughts about hurting his family or himself, but remains very anxious, and worries about the thoughts coming back. He is able to review coping skills that he is trying, and says he is "trying to be optimistic." His girlfriend is trying to gather the documentation he needs for his medical assistance application, which he will need to get aftercare. He continues to have poor appetite, eating only bites of meals. He slept poorly last night, waking up with nightmares and feeling anxious. He would like to increase the fluoxetine further. Sleep Information Total Hours of Sleep: 6.25 Meal Information Percent of Breakfast Consumed: 25 Percent of Lunch Consumed: 75 Percent of Dinner Consumed: 75 Mental Status Exam During interview pt is: alert and oriented, cooperative Appearance: appropriately dressed, appropriately groomed Eye contact is: good Motor behavior is: no abnormal motor movements Speech: normal in rate, rhythm & volume Affect: anxious, constricted Mood is: anxious Thought process: goal directed Thought content: preoccupation (on thoughts about hurting his family returning) Suicidal thought are: denied Homicidal thoughts are: denied (but still worries that he could have these thoughts outside the hospital ) Hallucinations: denies auditory, denies visual Cognition: memory grossly intact, attention grossly intact Intelligence estimated to be: average Insight: fair Judgement: fair Impression Adjusting to the unit, but remains severely depressed with SI and HI toward family. Thoughts are obsessional in nature, and meet criteria for OCD. Started fluoxetine, buspirone, and hydroxyzine for sleep. Family meeting held, and will need another prior to discharge to review safety plan, given that thoughts to harm others were directed at infant and girlfriend. Continued Inpatient Care Requires inpatient care due to the severity of his condition and the risk for suicide if discharged. Plan (1) Major depressive disorder, single episode, severe without psychosis 2/3 -Continue Prozac 20 mg. daily - Family meeting held with girlfriend today - Q 15 mn checks for safety - Encourage participation in group and individual counseling - The patient will require psychiatric aftercare - Assist the patient to learn and utilize healthy coping strategies 2 - aim to increase prozac to 30mg as of 2/5 dosage - to alleviate anxiety/depressive and obsessive symptoms -consider retrial of buspar but pt weary given lightheadedness/ spaciness that developed few weeks on it (unclear to senior writer if alcohol use could be a factor) ' -encouraged vistaril 25mg prn usage for anxiety and can explore more full use of this med if is alleviating factor -consider other adjunctive meds (non controlled meds given extensive alcohol usage) -encourage limits to coffee/caffeine usage as outpatient (limits occurring on unit by nature of unit structure) -education of how alcohol interplays in depression/obsessiveness/ anxiety concerns and validation of ceasing drinking -safety concerns addressed 12/02 -prozac 30mg as of 25 dosage -pt decided to retry buspar at 7.5mg bid dosage, monitoring for s/e including feeling spacey or lightheaded on it, aiming for gentle titration since s/e previous occurred couple weeks into dosage and possibly as increased. adjunctive for depression and anxiety -likely to raise prozac to 40mg in near future. 2 - increase fluoxetine to 40mg qam for tomorrow - attempting to arrange outpatient therapy and psychiatric follow up, limited by lack of insurance and financial constraints - recommend second meeting with girlfriend to review safety concerns prior to discharge, given thoughts to harm her and baby (although these are ego dystonic and patient does not want to act on them, but want to ensure girlfriend is aware of the safety plan and what steps to take if thoughts recur or if she feels unsafe, and that she feels safe with him coming home). 2 - Increase buspirone to 15mg bid to target anxiety. 2 - increase fluoxetine to 60mg qam for tomorrow - second meeting held with GF to review safety plan and how to cope at home. - cannot schedule outpatient appointments due to lack of insurance, exploring options for interim care ([facility]? PCP for meds?) (2) OCD (obsessive compulsive disorder) 2/3 - Meds as above - Encourage distracting activities - Educate about the nature of OCD, that not likely to act - Explore mindfulness techniques, relaxation, breathing exercises 2 - Start Buspar, and continue fluoxetine titration 2 - Increase fluoxetine as above 2 - Buspirone increase as above. - Increase hydroxyzine to 100mg qhs prn for ongoing insomnia. 12/05 - Medication increases as above. (3) Alcohol use disorder 2 - Encourage abstinence 12/04 - Processed use of alcohol, which he thinks was his only coping mechanism in the past, and that increased anxiety is expected in the months after stopping alcohol. Reviewed developing alternate coping skills. He enjoys gardening and preserving food, which is also financially helpful for the family, and is looking forward to doing that this spring. Also enjoys fishing but hasn't been going recently, discussed plan to go with grandfather this spring, and to schedule time to see grandparents more, do family game night. (4) Underweight 2 - Monitor weight - Consider dietary consult 12/04 - Eating some of each meal here, appetite limited by anxiety Discharge / Aftercare Planning Primary Care Physician: Name: Dr Farfan Appointment Notes: [address], [place] Therapist: Name: was with Kendra Rodney Bunch Maker: Name: Lo Hernandez [facility] Phone Number: [phone] Visit Code E&M Code: 01651 Inventory Assets Strengths: Love of family, willingness to engage in treatment Needs: To abstain from substances Risk Factors Assessment Male: Yes : Yes /single/: Yes Higher / Fall in social status: No Access to guns: Yes (but locked in a safe) Health problems: No Mental Health Diagnoses: Yes Substance use disorders: Yes Previous attempt: No Family history of suicide: No Previous psychiatric stay: No Hopelessness: No Smoker: No Protective Factors Assessment : No Responsible for young children: Yes Employed: Yes Stable relationships: Yes Supportive family: Yes Good rapport with provider: No Data Vital Signs Last 24 Hrs: Date Time Temp Pulse Resp B/P Pulse Ox O2 Delivery O2 Flow Rate FiO2 12/05/16 06:57 36.5 61 16 136/86 78 129/84 12/05/16 06:56 36.5 63 Meds Administered Last 24 Hrs: Meds Administered (Past 24Hrs) Medications (Trade) Dose Ordered Sig/Shaggy Route Start Time Stop Time Status Last Admin Dose Admin Fluoxetine HCl (Prozac Cap) 40 mg QAM PO 12/04/16 09:00 01/03/17 08:59 12/05/16 08:47 40 MG Hydroxyzine HCl (Vistaril Tab) 100 mg HSZ PRN PO 12/04/16 22:00 01/03/17 21:59 12/04/16 21:28 100 MG Buspirone HCl (BusPAR TAB) 15 mg BID PO 12/04/16 22:00 01/03/17 21:59 12/05/16 08:47 15 MG Problem Qualifiers (1) OCD (obsessive compulsive disorder): Obsessive-compulsive disorder type: unspecified Qualified Codes: F42.9 - Obsessive-compulsive disorder, unspecified
[2016-12-05] MEDS: hydrOXYzine HCL 25 MG TAB PO PRN (21:27)
[2016-12-06 06:38] VITALS: BP_SYST 112; BP_DIAS 71; BP_DIAS 76; PULSE 55; PULSE 84; TEMP 36.4
[2016-12-06] MEDS: BusPIRone 15 MG TAB PO SCH (08:46)
[2016-12-06] MEDS ORDERED: FLUOXETINE HCL 20 MG CAP PO SCH (09:00)
--- NOTE | 2016-12-06 09:20 | Discharge Summary ---
Discharge Summary Dates / Dispostion Admission Date / Time: Nov 28, 2016 at 22:15 Discharge Disposition: Home Principal Diagnosis (1) Major depressive disorder, single episode, severe without psychosis (2) OCD (obsessive compulsive disorder) (3) Alcohol use disorder (4) Suicidal ideation (5) Homicidal ideation Consultations None. Discharge / Aftercare Planning Primary Care Physician: Name: Dr Farfan Appointment Notes: as needed, [address], [place] Psychiatrist: Name: Mya Burton at [facility] (Spoke w [facility] about financial support) Phone Number: [phone] Date of Appointment: Dec 24, 2016 Time of Appointment: 10:00 Appointment Notes: hour, take medical shanon't card if have, [address] Therapist: Name: was with Kendra oRdney Layout Artist: Name: Lo Hernandez [facility] Phone Number: [phone] Appointment Notes: They will call you to complete paper work and get Medical Assistance ID Hospital Course (1) Major depressive disorder, single episode, severe without psychosis 2/3 -Continue Prozac 20 mg. daily - Family meeting held with girlfriend today - Q 15 mn checks for safety - Encourage participation in group and individual counseling - The patient will require psychiatric aftercare - Assist the patient to learn and utilize healthy coping strategies 2/4 - aim to increase prozac to 30mg as of 2/5 dosage - to alleviate anxiety/depressive and obsessive symptoms -consider retrial of buspar but pt weary given lightheadedness/ spaciness that developed few weeks on it (unclear to typewriters functional tester if alcohol use could be a factor) ' -encouraged vistaril 25mg prn usage for anxiety and can explore more full use of this med if is alleviating factor -consider other adjunctive meds (non controlled meds given extensive alcohol usage) -encourage limits to coffee/caffeine usage as outpatient (limits occurring on unit by nature of unit structure) -education of how alcohol interplays in depression/obsessiveness/ anxiety concerns and validation of ceasing drinking -safety concerns addressed 2/5 -prozac 30mg as of 25 dosage -pt decided to retry buspar at 7.5mg bid dosage, monitoring for s/e including feeling spacey or lightheaded on it, aiming for gentle titration since s/e previous occurred couple weeks into dosage and possibly as increased. adjunctive for depression and anxiety -likely to raise prozac to 40mg in near future. 2/6 - increase fluoxetine to 40mg qam for tomorrow - attempting to arrange outpatient therapy and psychiatric follow up, limited by lack of insurance and financial constraints - recommend second meeting with girlfriend to review safety concerns prior to discharge, given thoughts to harm her and baby (although these are ego dystonic and patient does not want to act on them, but want to ensure girlfriend is aware of the safety plan and what steps to take if thoughts recur or if she feels unsafe, and that she feels safe with him coming home). 2/7 - Increase buspirone to 15mg bid to target anxiety. 28 - increase fluoxetine to 60mg qam for tomorrow - second meeting held with GF to review safety plan and how to cope at home. - cannot schedule outpatient appointments due to lack of insurance, exploring options for interim care ([facility]? PCP for meds?) (2) OCD (obsessive compulsive disorder) 2/3 - Meds as above - Encourage distracting activities - Educate about the nature of OCD, that not likely to act - Explore mindfulness techniques, relaxation, breathing exercises 2 - Start Buspar, and continue fluoxetine titration 2/6 - Increase fluoxetine as above 2/7 - Buspirone increase as above. - Increase hydroxyzine to 100mg qhs prn for ongoing insomnia. 2 - Medication increases as above. (3) Alcohol use disorder 2/3 - Encourage abstinence 2 - Processed use of alcohol, which he thinks was his only coping mechanism in the past, and that increased anxiety is expected in the months after stopping alcohol. Reviewed developing alternate coping skills. He enjoys gardening and preserving food, which is also financially helpful for the family, and is looking forward to doing that this spring. Also enjoys fishing but hasn't been going recently, discussed plan to go with grandfather this spring, and to schedule time to see grandparents more, do family game night. (4) Underweight 2/3 - Monitor weight - Consider dietary consult 2/7 - Eating some of each meal here, appetite limited by anxiety Risk Factors Assessment Male: Yes : Yes /single/: Yes Higher / Fall in social status: No Access to guns: Yes (but locked in a safe) Health problems: No Mental Health Diagnoses: Yes Substance use disorders: Yes Previous attempt: No Family history of suicide: No Previous psychiatric stay: No Hopelessness: No Smoker: No Protective Factors Assessment : No Responsible for young children: Yes Employed: Yes Stable relationships: Yes Supportive family: Yes Good rapport with provider: No Day of Discharge Assessment Hospital Course: Day of Discharge Assessment: Patient state his mood is improved, denies SI and HI, and although he still has some anxiety, worrying about his intrusive thoughts returning, he is able to review his safety plan. He feels able to talk to his family and let them know if he is not feeling safe, and has outpatient appointments arranged. He is getting financial assistance through the [facility] in order to be seen at [facility] for med management. 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 He has plans to work on projects at home, and note distraction helps with his anxiety. He is pleased that he slept well last night, had no bad dreams , and woke up feeling better. 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
[2016-12-06] MEDS ORDERED: FLUO20CA36 PO (09:22)
[2016-12-06] MEDS ORDERED: BSP15 PO (09:22)
--- NOTE | 2016-12-06 09:25 | Discharge Instructions ---
Discharge Information Report Includes Report will include the: Discharge Instructions & Summary Admission Admission Date / Time: Nov 28, 2016 at 22:15 Reason for Admission: Depression And Anxiety, Panic Discharge Discharge Diagnosis / Problem: Major depression. OCD. Condition at Discharge: Fair Discharge Goals Goal(s): Improve function, Improve disease control, Learn about illness, Therapeutic intervention Activity Recommendations Activity Limitations: per Instructions/Follow-up section . Instructions / Follow-Up Instructions / Follow-Up . SPECIAL CARE INSTRUCTIONS: 1. Follow through with your scheduled aftercare appointments. If unable to keep an appointment, please call to reschedule. 2. Take your medication only as prescribed. Medication should not be changed or stopped without the approval of your doctor. In the event of worsening symptoms or concerns about side effects, contact your doctor immediately. 3. Utilize new healthy coping skills, anger management skills, and stress management skills learned during your hospitalization. Journal feelings and process them with a support person. Identify stressors or situations that may result in relapse, deterioration or inappropriate behaviors and develop a plan to deal with those issues. 4. If your coping skills are ineffective and you are in crisis, contact your outpatient providers for direction. If unable to reach your providers, please call the CAN HELP LINE AT or go to the closest Emergency Room. 5. Avoid alcohol and un-prescribed drugs. 6. You have been provided with the Mental Health Advance Directives Pamphlet for your review. AFTERCARE APPOINTMENTS: * Please call your insurance company prior to your scheduled appointment to confirm your aftercare providers are covered. Take your insurance information to your appointments. . Discharge / Aftercare Planning Primary Care Physician: Name: Dr Farfan Appointment Notes: as needed, [address], [place] Psychiatrist: Name: [facility] (Spoke w [facility] about financial support) Phone Number: [phone] Date of Appointment: Dec 24, 2016 Time of Appointment: 10:00 Appointment Notes: hour, take medical shanon't card if have, [address] , [place] Therapist: Name Of Therapist: was with Kendra Rodney Electrical Machine Builder: Name: Lo Hernandez ID Phone Number: [phone] Appointment Notes: They will call you to complete paper work and get Medical Assistance ID . Follow-Up Care Plan for Follow-Up Care: see above Current Hospital Diet Patient's current hospital diet: Regular Diet Discharge Diet Recommended Diet: Regular Diet Procedures Procedures Performed: No Pending Studies Pending Studies at Discharge: No Medical Emergencies . Who to Call and When: Medical Emergencies: For questions or emergencies related to your hospital stay, please contact the Inpatient Behavioral Health Unit at [phone]. A employment appeals examiner is on-call 20/05 for the Behavioral Health Unit for emergencies At any time you feel your situation is an emergency, you may also call 911 immediately. . Non-Emergent Contact Non-Emergency issues call your: Primary Care Provider, Psychiatrist, Electrical Machine Builder Past History Medical & Surgical History: (1) Suicidal ideation (2) Homicidal ideation (3) Alcohol use disorder Advance Directives Existing Advance Directive: No Do You Have an Existing Mental: No Existing Living Will: No Existing Power of Ticket Taker Ferryboat: No Advance Directives Info Given: To Pt/S.O. Discharge Summary Admission HPI Per the Admitting provider: Please see admission H&P. Admission Exam Per the Admitting provider: Please see admission H&P. Consultations None. Hospital Course (1) Major depressive disorder, single episode, severe without psychosis 2/3 -Continue Prozac 20 mg. daily - Family meeting held with girlfriend today - Q 15 mn checks for safety - Encourage participation in group and individual counseling - The patient will require psychiatric aftercare - Assist the patient to learn and utilize healthy coping strategies 2/4 - aim to increase prozac to 30mg as of 2/5 dosage - to alleviate anxiety/depressive and obsessive symptoms -consider retrial of buspar but pt weary given lightheadedness/ spaciness that developed few weeks on it (unclear to newspaper writer if alcohol use could be a factor) ' -encouraged vistaril 25mg prn usage for anxiety and can explore more full use of this med if is alleviating factor -consider other adjunctive meds (non controlled meds given extensive alcohol usage) -encourage limits to coffee/caffeine usage as outpatient (limits occurring on unit by nature of unit structure) -education of how alcohol interplays in depression/obsessiveness/ anxiety concerns and validation of ceasing drinking -safety concerns addressed 2/5 -prozac 30mg as of 25 dosage -pt decided to retry buspar at 7.5mg bid dosage, monitoring for s/e including feeling spacey or lightheaded on it, aiming for gentle titration since s/e previous occurred couple weeks into dosage and possibly as increased. adjunctive for depression and anxiety -likely to raise prozac to 40mg in near future. 2 - increase fluoxetine to 40mg qam for tomorrow - attempting to arrange outpatient therapy and psychiatric follow up, limited by lack of insurance and financial constraints - recommend second meeting with girlfriend to review safety concerns prior to discharge, given thoughts to harm her and baby (although these are ego dystonic and patient does not want to act on them, but want to ensure girlfriend is aware of the safety plan and what steps to take if thoughts recur or if she feels unsafe, and that she feels safe with him coming home). 2 - Increase buspirone to 15mg bid to target anxiety. 2 - increase fluoxetine to 60mg qam for tomorrow - second meeting held with GF to review safety plan and how to cope at home. - cannot schedule outpatient appointments due to lack of insurance, exploring options for interim care ([facility]? PCP for meds?) 12/06 - discharged with 30 day prescriptions for fluoxetine and buspirone, both on the $4 list at [facility]. - F/u with Mya Burton at [facility] 12/24/16, and rehabilitation caseworker at [facility], who will assist with therapy referral - F/u on [place] application. (2) OCD (obsessive compulsive disorder) 2/3 - Meds as above - Encourage distracting activities - Educate about the nature of OCD, that not likely to act - Explore mindfulness techniques, relaxation, breathing exercises 12/02 - Start Buspar, and continue fluoxetine titration 2/ - Increase fluoxetine as above 2 - Buspirone increase as above. - Increase hydroxyzine to 100mg qhs prn for ongoing insomnia. 2 - Medication increases as above. 12/06 - Intrusive thoughts have resolved, able to review safety plan in case they return. Feels safe going home, and had second family meeting with girlfriend this week who is in agreement with plan for discharge. (3) Alcohol use disorder 2/3 - Encourage abstinence 12/04 - Processed use of alcohol, which he thinks was his only coping mechanism in the past, and that increased anxiety is expected in the months after stopping alcohol. Reviewed developing alternate coping skills. He enjoys gardening and preserving food, which is also financially helpful for the family, and is looking forward to doing that this spring. Also enjoys fishing but hasn't been going recently, discussed plan to go with grandfather this spring, and to schedule time to see grandparents more, do family game night. (4) Underweight 2/3 - Monitor weight - Consider dietary consult /7 - Eating some of each meal here, appetite limited by anxiety Risk Factors Assessment Male: Yes : Yes /single/: Yes Higher / Fall in social status: No Access to guns: No (locked in a safe and he will not have access.) Health problems: No Mental Health Diagnoses: Yes Substance use disorders: Yes Previous attempt: No Family history of suicide: No Previous psychiatric stay: No Hopelessness: No Smoker: No Protective Factors Assessment : No Responsible for young children: Yes Employed: Yes Stable relationships: Yes Supportive family: Yes Good rapport with provider: No Absence of risk factors above: Yes (the patient's mood and anxiety have improved here with medications and therapy. His intrusive thoughts of harming others and himself have resolved. He is able to review coping skills and his discharge safety plan. He had 2 family meetings with his girlfriend, and she confirmed that the guns are secured and he will not have access. They also have a plan to secure knives if he is feeling unsafe or intrusive thoughts return, as well as a plan to increase support from family. He is agreeing not to drink alcohol, recognizing that it does not help his symptoms and places him at greater risk. After care has been arranged for medication management and case management services through the [facility], and they will assist with a therapy referral, as he still does not have insurance. He has been assisted to apply for medical assistance to ensure he can continue receiving outpatient mental health services. He is eating, sleeping, and performing his ADLs independently here. He has not been violent, aggressive, or engaged in self- injurious behavior. He is no longer at acute risk of harm to himself or others , is requesting discharge, and his girlfriend agrees with the plan, so he can be discharged and managed as an outpatient at this time.) Day of Discharge Assessment Hospital Course: The patient was calm and cooperative throughout his stay, attending groups and participating actively in treatment. He tolerated medications well, and his fluoxetine was increased to a total of 60 mg daily, and buspirone to 15 mg twice a day. He took hydroxyzine on the unit for sleep, and felt it was helpful, but did not want a prescription at discharge, stating he would take diphenhydramine [id number] if he needed a medication for sleep. He agreed to abstain from alcohol, and was able to work on healthy ways to cope with anxiety and intrusive thoughts. His intrusive thoughts of harming his girlfriend and daughter lessened and then resolved throughout the course of his stay, and at no time was he violent or aggressive towards others. He consistently stated that he would never want to act on these thoughts, and had never been violent to anyone in the past. His suicidal ideation resolved as well, as he identified it as being caused by the homicidal thoughts, thinking that if he felt like he was really going to hurt someone else, he would rather end his own life first. He was able to work on a comprehensive safety plan, which he shared with his girlfriend during her second family meeting. 2 family meetings were held with his girlfriend, and they discussed the stressors at home , including caring for 2 young children, both working full-time, and financial strain. They admitted that they've had difficulty accepting help from family, and were willing to consider couples counseling. His affect improved throughout his stay, and he was brighter and more interactive with others. The evening prior to discharge, his girlfriend visited with the children, and staff observed him holding the baby, snuggling and interacting appropriately with his infant. Aftercare was a challenge due to his lack of insurance, but [facility] was contacted and able to assist with arranging aftercare, and he was set up with an intake at [facility] for med management and rehabilitation caseworker, who will also help him complete his medical assistance application. Day of Discharge Assessment: Patient state his mood and anxiety are both improved, denies SI and HI, and although he still has some anxiety, worrying about his intrusive thoughts returning, he is able to review his safety plan. He feels able to talk to his family and let them know if he is not feeling safe , and has outpatient appointments arranged. He is getting financial assistance through the [facility] in order to be seen at [facility] for med management. He will also be assigned a rehabilitation caseworker. He is able to review the coping skills he has been working on here, has plans to work on projects at home, and notes that distraction helps with his anxiety. He is pleased that he slept well last night , had no bad dreams, and woke up feeling better. 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 He is requesting discharge today, and his girlfriend will be picking him up. Tall, thin white male appearing his stated age. Casually dressed and adequately groomed. Calm and cooperative. Seated in NAD, with fair eye contact and no abnormal movements. Speech is normal rate, volume, and tone. Mood is "pretty good," and affect is stable and congruent. Thoughts are linear, logical and goal directed. The patient denied suicidal and homicidal ideation and was able to review his safety plan. No paranoia, delusions, or hallucinations, and did not appear to be responding to internal stimuli. Cognition was grossly intact. Alert and oriented to person, place and time. Intelligence is consistent with level of education. Insight and and judgment are fair. Laboratory Refer to printed laboratory reports Total Time Total Time Spent (min): Greater than 30 minutes Total Time Included: examination of the patient, discharge planning, medication reconciliation Tobacco Cessation at Discharge FDA approved Prescription: non-smoker Problem Qualifiers (1) OCD (obsessive compulsive disorder): Obsessive-compulsive disorder type: unspecified Qualified Codes: F42.9 - Obsessive-compulsive disorder, unspecified
== END 2016-12-06 12:50 | disposition home or self-care (01) | DRG 885 ==
LOC: ENRESERVDT → ENRESERVTM → C.EDB 15:33 → C.MHU 22:15
PROVIDERS: ADMIT Student in an Organized Health Care Education/Training Program; ATTEND Psychiatry & Neurology Psychiatry
DX: F33.2 Major depressive disorder, recurrent severe without psychotic features (principal); Z68.1 Body mass index [BMI] 19.9 or less, adult; R45.851 Suicidal ideations; F42.9 Obsessive-compulsive disorder, unspecified; F41.1 Generalized anxiety disorder; R45.850 Homicidal ideations; Z87.891 Personal history of nicotine dependence; Z81.8 Family history of other mental and behavioral disorders

== ENCOUNTER 2017-09-18 20:53 | Emergency (ER) | payer OTHER ==
[~2017-09-18] VITALS: Ht 190.5 cm; Wt 84.7 kg
[~2017-09-18 20:53] MED LIST changes: +BSP15 PO; +FLUO20CA36 PO; -HYDR25CA PO; -LORA-741 PO; -MULT-506 PO
[2017-09-18 20:56] VITALS: Ht 190.5 cm; Wt 84.7 kg
[2017-09-18] MEDS ORDERED: HYDROCODONE/ACETAMOPHEN 5/325MG TAB PO ONE (21:15)
[2017-09-18] MEDS ORDERED: MULT-506 PO (21:20)
[2017-09-18] MEDS ORDERED: OMEP20CA9 PO (21:20)
[2017-09-18] MEDS ORDERED: BUSP15TA70 PO (21:20)
[2017-09-18] MEDS ORDERED: QUET1TAB32 PO (21:20)
[2017-09-18] MEDS ORDERED: FLUO40CA8 PO (21:20)
[2017-09-18] MEDS ORDERED: CITA10TA8 PO (21:20)
--- NOTE | 2017-09-18 21:56 | DIAGNOSTIC IMAGING REPORT ---
ULTRASOUND TESTES AND SCROTUM CLINICAL HISTORY: Left testicular pain. COMPARISON STUDY: Scrotal ultrasound dated 05/11/2011. TECHNIQUE: Real-time, grayscale, and color Doppler sonography of the testes and scrotum is performed. Images are reviewed in the transverse and longitudinal planes. FINDINGS: The testes are normal in size and homogeneous in echotexture. The right testis measures 5.3 x 2.8 x 2.6 cm and the left testis measures 5.2 x 2.7 x 2.9 cm. Scattered testicular calcifications are incidentally noted. No intratesticular mass is seen. Testicular blood flow is normal and symmetric. Normal Doppler waveforms are identified in both testes. The epididymal heads are normal in appearance. The right epididymal head measures 1.0 cm in length and the left epididymal head measures 1.5 cm in length. A 1.6 cm cyst is noted in the left epididymal head. Increased vascularity suggested within the left epididymal tail. No varicocele or hydrocele is seen. IMPRESSION: 1. Unremarkable sonographic assessment of the testes. 2. Increased vascularity is suggested in the left epididymal tail. Correlate clinically for evidence of mild epididymitis. Electronically signed by: Walter Gonzalez M.D. 09/18/2017 9:55 PM Dictated Date/Time: 09/18/2017 9:53 PM
[2017-09-18] MEDS ORDERED: DOXYCYCLINE HYCLATE 100 MG CAP PO STA (22:17)
[2017-09-18] MEDS ORDERED: DOXY100C PO (22:19)
[2017-09-18] MEDS ORDERED: CEFTRIAXONE SOD 350MG/ML 1 GM VIAL IM ONE (22:30)
[2017-09-18 22:31] VITALS: BP 117/70; PULSE 70; TEMP 36.7; O2SAT 97
--- NOTE | 2017-09-19 20:41 | EMERGENCY ROOM VISIT NOTE ---
History First contact with patient: 20:59 Chief Complaint: TESTICULAR PAIN Stated Complaint: SEVER PAIN IN TESTICLE, RECENT VASECTOMY Nursing Triage Summary: c/o left testicular pain . hx of a vascectomy recently. denies fall or injury. History of Present Illness The patient is a 32 year old male who presents to the Emergency Room with complaints of acute onset of left testicle pain for about the past one to 2 hours. The patient does not recall injury or trauma. This pain is increasing in severity, and it is difficult for him to sit because of the pain. The patient is able to use the bathroom as normal. No urethral drainage or discharge. He is in a mutually monogamous relationship, and does not have concern for STDs. He has had epididymitis in the past, and this feels similar. No abdominal pain or flank pain. He has not taken anything [id number] and rates his current discomfort is 7/10. Review of Systems More than 10 systems were reviewed and otherwise negative with the exception of history of present illness. Past Medical/Surgical History Medical Problems: (1) Alcohol use disorder (2) Anxiety (3) Depression (4) OCD (obsessive compulsive disorder) (5) Panic attack (6) Underweight Family History Patient reports no known family medical history. Social History Smoking Status: Never Smoker Marital Status: single Occupation Status: employed Current/Historical Medications Scheduled Buspirone Hcl (Buspar), 15 MG PO BID Citalopram Hydrobromide (Celexa), 10 MG PO DAILY Doxycycline Hyclate (Vibramycin), 100 MG PO BID Fluoxetine (Prozac), 40 MG PO DAILY Multivitamin (Multivitamin), 1 TAB PO DAILY Omeprazole (Prilosec), 20 MG PO DAILY Quetiapine Fumarate (Seroquel), 50 MG PO HS Physical Exam Vital Signs Date Time Temp Pulse Resp B/P (MAP) Pulse Ox O2 Delivery O2 Flow Rate FiO2 09/18/17 22:31 36.7 70 18 117/70 97 Room Air 09/18/17 20:56 36.5 67 18 135/70 Room Air Physical Exam VITALS: Vitals are noted on the nurse's note and reviewed by myself. Vital signs stable. GENERAL: Well-developed, well-nourished, white male, who is in no acute distress and resting comfortably. Patient is cooperative with the examination. HEART: Regular rate and rhythm without murmurs gallops or rubs. LUNGS: Clear to auscultation bilaterally without wheezes, rales or rhonchi. No retractions or accessory muscle use. ABDOMEN: Positive normal bowel sounds x 4. Soft, nontender, without masses or organomegaly. No guarding or rebound tenderness. No CVA tenderness : Normal-appearing external male genitalia with circumcised phallus. No urethral drainage or discharge. No obvious lesions across the shaft or testicles. Normal cremasteric reflex. The left side posterior testicle is tender without obvious mass. MUSCULOSKELETAL: No muscle atrophy, erythema, or edema noted. Full range of motion without joint tenderness in all extremities. Medical Decision & Procedures ER Provider Diagnostic Interpretation: ULTRASOUND TESTES AND SCROTUM CLINICAL HISTORY: Left testicular pain. COMPARISON STUDY: Scrotal ultrasound dated 05/11/2011. TECHNIQUE: Real-time, grayscale, and color Doppler sonography of the testes and scrotum is performed. Images are reviewed in the transverse and longitudinal planes. FINDINGS: The testes are normal in size and homogeneous in echotexture. The right testis measures 5.3 x 2.8 x 2.6 cm and the left testis measures 5.2 x 2.7 x 2.9 cm. Scattered testicular calcifications are incidentally noted. No intratesticular mass is seen. Testicular blood flow is normal and symmetric. Normal Doppler waveforms are identified in both testes. The epididymal heads are normal in appearance. The right epididymal head measures 1.0 cm in length and the left epididymal head measures 1.5 cm in length. A 1.6 cm cyst is noted in the left epididymal head. Increased vascularity suggested within the left epididymal tail. No varicocele or hydrocele is seen. IMPRESSION: 1. Unremarkable sonographic assessment of the testes. 2. Increased vascularity is suggested in the left epididymal tail. Correlate clinically for evidence of mild epididymitis. Medications Administered Medications (Trade) Dose Ordered Sig/Shaggy Route Start Time Stop Time Status Last Admin Dose Admin Acetaminophen/ Hydrocodone Bitart ([place] 5/325 Tab) 1 tab NOW ONCE PO 09/18/17 21:15 09/18/17 21:16 DC 09/18/17 21:14 1 TAB Ceftriaxone Sodium (Rocephin Im) 1,000 mg NOW ONCE IM 09/18/17 22:30 09/18/17 22:31 DC 09/18/17 22:28 1,000 MG Doxycycline Hyclate (Vibramycin Cap) 300 mg NOW STAT PO 09/18/17 22:17 09/18/17 22:19 DC 09/18/17 22:27 300 MG ED Course Physical exam and history were performed. Nursing notes, EMR, and Medication List were personally reviewed. Patient appears to have left testicle pain worsening over the past few hours. He does have some tenderness on palpation posteriorly. Ultrasound was performed and is as above. There may be an early epididymitis, and clinically this would correlate with his discomfort. I discussed options of care with patient and he was given 1 g IM Rocephin here in the department. He will be started on doxycycline as well. He is to follow with his primary care physician for ongoing care and evaluation. The chart was completed utilizing .[employer] Speech Voice Recognition Software. Grammatical errors, random word insertions, pronoun errors, and incomplete sentences are an occasional consequence of this system due to software limitations, ambient noise, and hardware issues. Any formal questions or concerns about the content, text, or information contained within the body of this dictation should be directly addressed to the provider for clarification. . Medical Decision Differential diagnosis: Etiologies such as torsion, mass, infection, hernia, hydrocele, epididymitis, trauma, intra-abdominal process, as well as others were entertained. Impression Primary Impression: Testicular pain, left Departure Information Dispostion Home / Self-Care Condition GOOD Prescriptions Doxycycline Hyclate (VIBRAMYCIN) 100 Mg Cap 100 MG PO BID for 9 Days, #18 CAP Prov: Kennedy Goldman PA-C 09/18/17 Forms HOME CARE DOCUMENTATION FORM, IMPORTANT VISIT INFORMATION Patient Instructions My [facility] Additional Instructions You were seen and evaluated today on an emergency basis only. This is not a substitute for, or an effort to provide, complete comprehensive medical care. It is not possible to recognize and treat all injuries or illnesses in a single emergency department visit. For this reason it is recommended that you followup with your primary care physician next week if symptoms persist. Take Doxycycline 100 mg twice a day for 10 days. Avoid exposure to the sun/UV light while on this medication or use frequent application of SPF 50 or higher due to increased sensitivity to UV rays and high risk for severe hager. Take this medication WITH FOOD. You are welcome to return to the emergency department anytime with new, worsening, or concerning symptoms.
== END 2017-09-18 22:33 | disposition home or self-care (01) ==
LOC: C.EDB 20:54
DX: N50.812 Left testicular pain (principal); F41.9 Anxiety disorder, unspecified; F32.9 Major depressive disorder, single episode, unspecified; F42.9 Obsessive-compulsive disorder, unspecified; Z79.899 Other long term (current) drug therapy